=== PATIENT | male | born 2000 | race Caucasian/White ===

== ENCOUNTER 2020-09-18 12:42 | Emergency (ER) | payer MEDICAID, SELFPAY ==
[~2020-09-18] VITALS: Ht 170.2 cm; Wt 95.3 kg
[2020-09-18 12:56] VITALS: BP_SYST 144
[2020-09-18] MEDS ORDERED: AMOX-426 PO (13:11)
[2020-09-18] MEDS ORDERED: AZIT250T PO (13:11)
[2020-09-18] MEDS ORDERED: DEXA6TAB5 PO (13:11)
[2020-09-18 13:23] VITALS: BP_SYST 144
== END 2020-09-18 13:24 | disposition home or self-care (01) ==
LOC: SED 12:42
DX: U07.1 COVID-19 (principal); Z79.899 Other long term (current) drug therapy; Z88.8 Allergy status to other drugs, medicaments and biological substances
CPT/HCPCS: 99283

== ENCOUNTER 2022-05-23 11:52 | Emergency (ER) | payer MEDICAID ==
[~2022-05-23] VITALS: Ht 170.2 cm; Wt 127.0 kg
[~2022-05-23 11:52] MED LIST: AMOX-426 PO; DEXA6TAB5 PO; ZIT250 PO
[2022-05-23 11:55] VITALS: BP_SYST 155
--- NOTE | 2022-05-23 12:00 | NUR ---
Patient to ER bed 5 to gown for evaluation. Side rails up. Report given to NICO ESTRADA.
--- NOTE | 2022-05-23 12:11 | NUR ---
first encounter to pt at this time. pt here c/o L foot pain, denies injuries. awaiting ERMD to assess. vss nad. wctm
--- NOTE | 2022-05-23 13:00 | NUR ---
Dr Valdez evaluating patient at bedside
[2022-05-23] MEDS ORDERED: CIPR500T5 PO (14:16)
[2022-05-23] MEDS ORDERED: IBUP-1969 PO (14:16)
[2022-05-23] MEDS ORDERED: IBUPROFEN 600 MG TABLET PO ONE (14:30)
[2022-05-23 14:37] VITALS: BP_SYST 155
--- NOTE | 2022-05-23 14:39 | NUR ---
Patient given written and verbal discharge instructions and verbalizes understanding. ER MD discussed with patient the results and treatment provided. Patient in stable condition. ID arm band removed. Rx of Cipro and Ibuprofen given. Patient educated on pain management and to follow up with PMD. Pain Scale 2/10 Opportunity for questions provided and answered. Medication side effect fact sheet provided.
== END 2022-05-23 14:37 | disposition home or self-care (01) ==
LOC: SED 11:52
DX: M79.672 Pain in left foot (principal); Z88.8 Allergy status to other drugs, medicaments and biological substances; Z79.899 Other long term (current) drug therapy
CPT/HCPCS: 99283